=== PATIENT | male | born 1930 | race Caucasian/White ===

== ENCOUNTER 2016-11-05 11:32 | Inpatient (IN) | payer OTHER ==
[~2016-11-05] VITALS: Ht 180.3 cm; Wt 73.5 kg
--- NOTE | ~2016-11-05 | 2DMMODE ---
[facility] [place] [address] 2 D/M-MODE ECHOCARDIOGRAM Name: CAMILAYANNI Room #: 212-P [facility] IN .R.#: [id number] Admission: 11/05/16 Attend Phys: Amador Naranjo, Discharge: Date of : 30 Date of Service: 11/06/16 [facility] Report #: [id number] THIS REPORT FOR: //name// APPROVED REPORT Study performed: 11/06/2016 11:49:22 EXAM: Comprehensive 2D, Doppler, and color-flow Echocardiogram Patient Location: Bedside Room #: 212 Blood Pressure: 143/75 mmHg HR: 98 bpm Rhythm: Irregular Other Information Study Quality: Fair Technically limited study due to body habitus and limited mobility. Poor apical windows.. Indications Atrial Fibrillation Chest Pain Hx: Afib, HTN, Parkinson's 2D Dimensions LVEF(%): 75.06 (>50%) IVSd: 10.26 (7-11mm) LVOT Diam: 21.43 (18-24mm) LVDd: 45.47 mm PWd: 9.29 (7-11mm) Ascending Ao: 34.49 (22-36mm) LVDs: 25.57 (25-40mm) Aortic Root: 33.77 mm Nelson's LVEF: 75.06 % Volumes Left Atrial Volume (Systole) Single Plane 4CH: 20.65 mL Single Plane 2CH: 44.32 mL LA ESV Index: 19.00 mL/m2 Aortic Valve AoV Peak Carlito.: 2.31 m/s AO Peak Gr.: 21.26 mmHg LVOT Max P.29 mmHg AO Mean Gr.: 12.[address] [facility] [email or web address] [address] 2 D/M-MODE ECHOCARDIOGRAM Name: YANNI JENSEN Room #: 212-P [facility].#: [id number] Admission: 11/05/16 Attend Phys: Amador Naranjo, Discharge: Date of : 30 Date of Service: 11/06/16 1300 Report #: [id number] LVOT Max V: 1.25 m/s AO V2 VTI: 45.61 cm Mitral Valve E/A Ratio: 0.9 MV Decel. Time: 262.19 ms MV E Max Carlito.: 1.31 m/s MV A Carlito.: 1.38 m/s MV PHT: 76.04 ms Pulmonary Valve PV Peak Carlito.: 1.05 m/s PV Peak Gr.: 4.37 mmHg Tricuspid Valve TR Peak Carlito.: 2.87 m/s TR Peak Gr.: 32.92 mmHg Left Ventricle The left ventricle is normal size. There is normal LV segmental wall motion. There is normal left ventricular wall thickness. Left ventricular systolic function is normal. LVEF is 60-65%. Grade I - abnormal relaxation pattern. Right Ventricle Right ventricle is not well visualized. Atria The left atrium size is normal. Right atrium is not well visualized appears normal in size. Aortic Valve Aortic valve is moderately calcified. Mild aortic regurgitation. There is no aortic valvular stenosis. Difficult to obtain accurate velocity due to poor image quality. Mitral Valve Mitral valve leaflets are moderately thickened and calcified. Mild mitral regurgitation. Mild mitral stenosis. Tricuspid Valve Tricuspid valve is not well visualized. There is mild to moderate tricuspid regurgitation. There is at least mild pulmonary hypertension. Estimated PAP is 33mmHg plus the right atiral pressure. Pulmonic Valve [facility] [address] [place] [address] 2 D/M-MODE ECHOCARDIOGRAM Name: CAMILAYANNI Ashley Room #: 212-P [facility] IN .R.#: [id number] Admission: 11/05/16 Attend Phys: Amador Naranjo, Discharge: Date of : 30 Date of Service: 11/06/16 1300 Report #: [id number] The pulmonary valve is normal in structure. Trace pulmonic regurgitation. Great Vessels The aortic root is normal in size. The ascending aorta is normal in size. IVC is not well visualized. Pericardium There is no pericardial effusion. <Conclusion> Left ventricular systolic function is normal. LVEF 60-65%. There is normal LV segmental wall motion. Aortic valve is moderately calcified. Mild aortic regurgitation. No aortic valvular stenosis. Difficult to obtain accurate velocity due to poor image quality. Mitral valve leaflets are moderately thickened and calcified. Mild stenosis and insufficiency. Pulmonary artery pressure of 40mmHg. There is no pericardial effusion. <ELECTRONICALLY SIGNED> By: Sorin Vergara MD, FACC 11/06/16 1300 1300 1300 Sorin Vergara MD, FACC /INF
--- NOTE | ~2016-11-05 | HC ---
[facility] [place] [address] CONSULTATION Name: YANNI JENSEN Room #: 212-P [facility] IN M.R.#: [id number] Admission: 11/05/16 Attend Phys: Amador Naranjo DO Discharge: 11/06/16 Date of : 30 Report #: [id number] THIS REPORT FOR: //name// CC: Jackie Taylor HISTORY OF PRESENT ILLNESS: The patient is an 86-year-old male patient who has history of paroxysmal atrial fibrillation. I was asked to evaluate for some paroxysmal al fibrillation, RVR, but he has subsequently converted to sinus rhythm with the Cardizem drip and now at 5 mg an hour. He looks to have some mild dementia. He is not completely consistent answering the questions, but has underlying Parkinson and some questionable orthostatic hypotension, hypothyroidism. He denies any chest pain or shortness of breath, although the records states he was having some complaints. Troponin is negative. The EKG does not exhibiting current of injury. He has a history of this and appears that he was anticoagulated with Xarelto 20 mg, according to the cardiology note from from March of last year. He had been on carbidopa, levodopa, Celexa, Crestor, diltiazem 240, Nexium, finasteride, levothyroxine, rosuvastatin and Flomax, vitamin D, and Xarelto, although the current record as necessary support Xarelto I am not sure that he has been on this or not and he cannot accurately answer that. PAST MEDICAL HISTORY: Positive for Parkinson, paroxysmal atrial fibrillation, DJD, hypothyroidism, BPH, also some questionable history of orthostatic hypotension, reflux, diverticulitis, macular degeneration, left fracture leg, cataracts, and tonsillectomy. SOCIAL HISTORY: He lives at [facility] now in independent living. He was down for his meal he states. No current alcohol or tobacco. He said he had 30 children. I think that probably not true. LABORATORY DATA: Potassium 3.7, creatinine 0.8. Troponin is negative. H and H is 14 and 42, platelet 140. White cell count is 10.6, H and H is 14 and 42, platelets are 140. Chest x-ray, no acute abnormality. PHYSICAL EXAMINATION: GENERAL: He is intermittently and is awake, but not clearly the answers are consistently irregular here. VITAL SIGNS: Pulse 80s and regular, blood pressure 140/66. HEENT: Eyes, arcus senilis, no xanthelasmas. Pharynx is clear. NECK: Shows preserved upstrokes without JVD or bruits. LUNGS: Clear. CARDIOVASCULAR: Regular rate and rhythm, S1, S2. ABDOMEN: Soft. No HSM or abdominal bruit. EXTREMITIES: Reveal no edema. Distal pulses were intact. NEUROLOGIC: Nonfocal. SKIN: Warm and dry without xanthoma or ulcer. [address] [address] CONSULTATION Name: YANNI JENSEN Room #: 212-P [facility] IN M.R.#: [id number] Admission: 11/05/16 Attend Phys: Amador Naranjo DO Discharge: 11/06/16 Date of : 30 Report #: [id number] MUSCULOSKELETAL: No gross joint deformity, generalized arthritic changes. I did have some rigidity on exam, I did not ambulate him. There is no subtle intention tremors noted on the neurologic exam, but otherwise nonfocal. ASSESSMENT: 1. Atrial fibrillation, rapid ventricular response, paroxysmal, currently resolved. 2. History of Parkinson. 3. Mild confusion. 4. Degenerative joint disease. 5. Hypertension. 6. Benign prostatic hypertrophy. 7. History of orthostatic hypotension, not currently being treated. RECOMMENDATIONS AND PLAN: We will continue with low dose Cardizem drip tonight and then would agree with reinstituting his p.o. Cardizem, Lipitor. He is on the Xarelto 20 mg a day, carbidopa and levodopa, Protonix. We would repeat an echo Doppler in the a.m. and EKG, I believe we could discontinue serial troponins here. Thank you for allowing me to assist care of this patient. <ELECTRONICALLY SIGNED> By: Sandip Salinas MD, FACC 11/11/16 0921 2100 0633 Sandip Salinas MD, FACC /nt
--- NOTE | ~2016-11-05 | EKG ---
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1930 Requested By: Alyx Bee Order Number: [id number] MD: Sorin Vergara Measurements Intervals [place] Rate: 152 P: NV: QRS: 61 QRSD: 91 T: -6 QT: 317 QTc: 504 Interpretive Statements Atrial fibrillation with rapid V-rate Nonspecific ST segment abnormality Compared to ECG 03/26/2016 15:52:15 ventricular response has increased Electronically Signed On 11-06-2016 8:16:52 CDT by Sorin Vergara [email or web address] <ELECTRONICALLY SIGNED> By: Sorin Vergara MD, LOCATED [facility]IN [facility] 11/06/16 0816 1137 113 Sorin Vergara MD, [facility] /EPI
--- NOTE | ~2016-11-05 | EKG ---
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 : 1930 Requested By: Sandip Salinas Order Number: [id number] MD: Sorin Vergara Measurements Intervals [place] Rate: 85 P: 67 DE: 163 QRS: 33 QRSD: 96 T: 14 QT: 378 QTc: 450 Interpretive Statements Sinus rhythm Compared to ECG 03/26/2016 15:52:15 Sinus rhythm has replaced atrial flutter Electronically Signed On 11-06-2016 8:38:22 CDT by Sorin Vergara [email or web address] <ELECTRONICALLY SIGNED> By: Sorin Vergara MD, [facility] 11/06/16 0838 0656 Sorin Vergara MD, [facility] /EPI
[~2016-11-05 11:32] MED LIST: ADVIL200 M2 PO; AZITHROMYCIN 2250 MG PO; CARBIDOPA-LEVO1 EAC9 PO; CELEXA 10 MG TA10 M1 PO; COLACE100 MG PO; CRESTOR5 MG PO; DILTIAZEM 24HR240 M1 PO; FLOMAX PO; GLUCOSAMINE-CH1 EA32 PO; IBUPROFEN 200200 M1 PO; INDAPAMIDE2.5 MG PO; KLOR-CON 1010 MEQ PO; MIRALAX17 GM PO; MIRAPEX0.5 MG PO; NEXIUM40 MG PO; NORVASC 2.5 MG2.5 M1 PO; PEPCID COMPLET1 EACH PO; PROSCAR 5MG TABL5 MG PO; ROBAFEN AC SYR120 ML PO; SINEMET 25/1001 TAB PO; SINEMET CR 50/21 TAB PO; SYNTHROID 0.10.1 M1 PG; SYNTHROID112 MCG PO; TAMSULOSIN HCL0.4 M1 PO; TESSALON200 MG PO; VITAMIN B-12500 MCG PO; XARELTO20 MG PO
[2016-11-05 11:37] VITALS: BP 163/85
[2016-11-05 12:01] LABS: ABSOLUTE NEUTROPHILS 8.6 thou/uL (1.4-8.2); BASOPHILS 0.5 % (0.0-2.0); EOSINOPHILS 0.5 % (0.0-3.0); HEMATOCRIT 42.6 % (42.0-52.0); HEMOGLOBIN 14.4 gm/dL (14.0-18.0); LYMPHOCYTES 8.9 % (24.0-44.0); MCH 31.2 pg (26.0-34.0); MCHC 33.9 g/dL (28.0-37.0); MCV 91.9 fL (80.0-100.0); MONOCYTES 9.3 % (1.0-8.0); PLATELET COUNT 140 thou/uL (150-400); POLYS 80.8 % (36.0-66.0); RBC 4.63 mil/uL (4.50-6.00); WBC 10.6 thou/uL (4.0-11.0)
[2016-11-05 12:02] LABS: MANUAL DIFF NO
[2016-11-05 12:04] LABS: ANION GAP 9 mmol/L (7-16); BUN 15 mg/dL (7-18); CALCIUM 8.4 mg/dL (8.5-10.1); CHLORIDE 106 mmol/L (98-107); CO2 26 mmol/L (21-32); CREATININE 0.8 mg/dL (0.7-1.3); GLUCOSE 104 mg/dL (74-106); POTASSIUM 3.7 mmol/L (3.5-5.1); SODIUM 141 mmol/L (136-145)
[2016-11-05 12:11] LABS: ALBUMIN 3.9 g/dL (3.4-5.0); ALKALINE PHOSPHATASE 72 U/L (46-116); SGOT 18 U/L (15-37); SGPT 15 U/L (30-65); TOTAL BILIRUBIN 0.8 mg/dL (<0.1-1.0); TOTAL PROTEIN 7.1 g/dL (6.4-8.2); TROPONIN-I < 0.04 ng/mL (<0.04-0.07)
[2016-11-05 15:30] VITALS: BP 141/66
[2016-11-05 15:35] VITALS: BP 146/66
[2016-11-05 17:11] LABS: TSH 0.337 uIU/mL (0.358-3.740)
[2016-11-06 00:27] VITALS: BP 115/61
[2016-11-06 00:32] LABS: CHOLESTEROL 102 mg/dL (<200); HDL CHOLESTEROL 51 mg/dL (>40); LDL CHOLESTEROL 41 mg/dL (<100); TRIGLYCERIDE 53 mg/dL (<150); VLDL 11 mg/dL (<40)
[2016-11-06 00:40] LABS: SERUM ASSESSMENT Clear
[2016-11-06 04:20] VITALS: BP 129/72
[2016-11-06 07:35] VITALS: BP 143/75
[2016-11-06] MEDS ORDERED: CARDIZEM CD240 MG PO (10:45)
[2016-11-06 11:11] VITALS: BP 143/75
[2016-11-06 11:20] VITALS: BP 146/68
== END 2016-11-06 13:35 | disposition home or self-care (01) | DRG 308 ==
LOC: ER 11:32 → 2N 13:29 → EROBS 13:29 → 2N 15:26
PROVIDERS: Nurse Practitioner; Physician Assistant
DX: I48.0 Paroxysmal atrial fibrillation (principal); G93.40 Encephalopathy, unspecified; D68.69 Other thrombophilia; I10 Essential (primary) hypertension; G20 Parkinson's disease; E03.9 Hypothyroidism, unspecified; K21.9 Gastro-esophageal reflux disease without esophagitis; M19.90 Unspecified osteoarthritis, unspecified site; N40.0 Benign prostatic hyperplasia without lower urinary tract symptoms; H35.30 Unspecified macular degeneration; K59.00 Constipation, unspecified; D69.6 Thrombocytopenia, unspecified; R26.81 Unsteadiness on feet; E78.5 Hyperlipidemia, unspecified; W18.39XA Other fall on same level, initial encounter; Y93.89 Activity, other specified; Z87.81 Personal history of (healed) traumatic fracture; Z98.41 Cataract extraction status, right eye; Z82.49 Family history of ischemic heart disease and other diseases of the circulatory system; Z90.49 Acquired absence of other specified parts of digestive tract; Z87.891 Personal history of nicotine dependence; Z95.1 Presence of aortocoronary bypass graft; Y92.89 Other specified places as the place of occurrence of the external cause; Y99.8 Other external cause status
CPT/HCPCS: 10081

== ENCOUNTER 2016-11-13 06:22 | Inpatient (IN) | payer OTHER ==
[~2016-11-13] VITALS: Ht 180.3 cm; Wt 72.6 kg
[2016-11-13] VITALS (11 sets, daily range): BP systolic 85–126; BP diastolic 24–58
--- NOTE | ~2016-11-13 | EKG ---
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
--- NOTE | ~2016-11-13 | HC ---
[facility] [place] [address] CONSULTATION Name: YANNI JENSEN JR Room #: 310-P ADM IN M.R.#: [id number] Admission: 11/13/16 Attend Phys: Gabriela Balderas MD Discharge: Date of : 30 Report #: [id number] THIS REPORT FOR: //name// CC: Jackie Balderas DATE OF SERVICE: 11/13/2016 REFERRING PROVIDER: Gabriela Balderas MD. REASON FOR CONSULTATION: Left hip traumatic hematoma. HISTORY OF PRESENT ILLNESS: The patient is an 86-year-old male, who is a resident at [facility], and has a history of paroxysmal atrial fibrillation, Parkinson's disease, and recent history of sustaining falls. The patient got out of bed this morning and states that he was unable to stand and fell to the ground and has been brought to the emergency room for evaluation. The patient was recently hospitalized for the similar episode, where he was found to have atrial fibrillation with RVR, converted to normal sinus rhythm with Cardizem. The patient has since been admitted to the hospital floor for evaluation, and I have been asked to evaluate for his left hip hematoma, which has been there since the recent fall of several days ago. While in the emergency room today, he did undergo evaluation with laboratories and imaging, showing no evidence of a hip fracture, and his hemoglobin is 8.4 where most recently it was 14.4 on 11/05/2016. He has been on Xarelto. PAST MEDICAL HISTORY: Parkinson's disease, hypertension, hypothyroidism, atrial fibrillation, cataracts, macular degeneration, BPH, and intermittent hallucinations. MEDICATIONS: Carbidopa-levodopa, Crestor, Synthroid, Flomax, vitamin B12, MiraLax, Celexa, Proscar, Nexium, and was recently on Xarelto. ALLERGIES: No known drug allergies. SOCIAL HISTORY: The patient does not utilize tobacco, alcohol, or illicit drugs. FAMILY HISTORY: Reviewed and noncontributory. REVIEW OF SYSTEMS: GENERAL: The patient denies nocturnal fevers or chills. HEENT: No change in vision or change in hearing. NECK: No swelling or difficulty swallowing. HEART: No chest pain or palpitations. LUNGS: No cough or shortness of breath. [address] [address] CONSULTATION Name: YANNI JENSEN Room #: 310-P [facility] IN .R.#: [id number] Admission: 11/13/16 Attend Phys: Gabriela Balderas MD Discharge: Date of : 30 Report #: [id number] ABDOMEN: No nausea. No vomiting. GENITOURINARY: No dysuria or hematuria. ENDOCRINE: No polyuria or polydipsia. HEMATOLOGIC: No history of bleeding or easy bruising. EXTREMITIES: No history of weakness or limited range of motion. NEUROLOGIC: Significant history of syncope and traumatic falls. SKIN AND INTEGUMENT: No prior history of abnormal lesions or moles. PSYCHIATRIC: History of Parkinson's with hallucinations. PHYSICAL EXAMINATION: VITAL SIGNS: Temperature 98.1, pulse 98, respirations 18, blood pressure 81/41. GENERAL: He is alert, in no acute distress. HEENT: Normocephalic and atraumatic. Pupils are equal, round, and reactive to light. NECK: Supple, without lymphadenopathy. Trachea midline. CARDIOVASCULAR: Irregularly irregular and intermittently tachycardic. LUNGS: Clear to auscultation bilaterally. ABDOMEN: Soft, nontender, and nondistended. GENITOURINARY: Normal external male genitalia. EXTREMITIES: No clubbing, cyanosis, or edema. NEUROLOGICAL: Cranial nerves 2-12 are grossly intact. PSYCHIATRIC: Normal mood and affect. SKIN AND INTEGUMENT: No abnormal lesions or moles; however, he does have significant ecchymosis to his left hip. LABORATORY AND X-RAY DATA: CBC shows white blood cell count of 12,800, hemoglobin was 8.4, platelets 209,000. Creatinine 0.9. Lactic acid 1.0. CT scan of the head shows no acute intracranial process. Left hip and pelvis x-rays showed no acute osseous findings. Chest x-ray shows no acute cardiopulmonary process. ASSESSMENT AND PLAN: An 86-year-old male with a recent history of sustaining traumatic falls and a longstanding history of Parkinson's disease and paroxysmal atrial fibrillation. Currently, it appears he is back in atrial fibrillation, and I suspect his falls were secondary to his cardiopulmonary process; however, I cannot rule out any neurological contribution as well. The hospitalist service has consulted both Neurology and Cardiology, which I think as completely appropriate at this time. As there is no osseous abnormality, my recommendation for the left hip hematoma is expectant management with ice packs and elevation. The patient's Xarelto should remain on hold if possible, and we will perform serial CBCs to ensure his hemoglobin does not drop to an unsafe level. I will defer any transfusion to the primary care service or Cardiology. [facility] [address] [place] [address] CONSULTATION Name: YANNI JENSEN Room #: 310-P ADM IN M.R.#: [id number] Admission: 11/13/16 Attend Phys: Gabriela Balderas MD Discharge: Date of : 30 Report #: [id number] I sincerely appreciate this consult. I will follow along and leave any further recommendations in the patient's chart as appropriate. <ELECTRONICALLY SIGNED> By: Andrea José MD, IBIS 11/13/16 1617 1022 1535 Andrea José MD, FACS /nt
--- NOTE | ~2016-11-13 | HC ---
[facility] [place] [address] CONSULTATION Name: YANNI JENSEN JR Room #: 304-P [facility] IN M.R.#: [id number] Admission: 11/13/16 Attend Phys: Brody Smith MD Discharge: 11/17/16 Date of : 30 Report #: [id number] THIS REPORT FOR: //name// CC: Jackie Balderas DATE OF SERVICE: 11/14/2016 HISTORY OF PRESENT ILLNESS: The patient is an 86-year-old male with a history of Parkinson's disease who lives at [facility] in an independent living apartment. He has had problems with increasing falls almost daily. He had significant left hip pain. He was admitted for further evaluation. X-rays of the left hip were negative, but he has a very large hematoma. The patient had been on Xarelto for paroxysmal atrial fibrillation and that has been stopped. X-rays were negative. He was noted to have a significant anemia, hemoglobin down to 6.7, and he is currently being transfused. He had the atrial fibrillation with rapid ventricular rate and was placed on Cardizem IV. He is noted to have orthostasis. We are seeing him in rehabilitation medicine consultation. PAST MEDICAL HISTORY: Includes Parkinson's disease, hypertension, hypothyroidism, acid reflux, atrial fibrillation, BPH, constipation, macular degeneration and a history of diverticulitis. MEDICATIONS: Please see the full medication listing. HABITS: Tobacco use, nonsmoker, history of some ETOH usage, limited. FAMILY HISTORY: Mother had a myocardial infarction, at the age of 90. SOCIAL HISTORY: Lives in an independent living apartment with spouse at [facility]. He used a 4-wheeled walker to get around. There are no steps in. He went to a balance class. He was doing reasonably well up until most recently when he has had all the falls on basically a daily level. He has some neck weakness as well and tends to hold his head in a tilted position to the right. REVIEW OF SYSTEMS: Left lateral hip pain as expected. Did not offer any complaints of chest pain, shortness of breath or abdominal discomfort. No other focal extremity pain complaints currently. PHYSICAL EXAMINATION: GENERAL: An 86-year-old white male in no obvious distress. Some evidence of masked facies. VITAL SIGNS: Temperature is 98.5, pulse 96, respirations 18 and blood pressure 129/42. NEUROLOGIC: He is alert, will follow basic 1-step commands. Tends to defer [facility] [address] [place] [address] CONSULTATION Name: YANNI JENSEN Room #: 304-P [facility] IN [facility].#: [id number] Admission: 11/13/16 Attend Phys: Brody Smith MD Discharge: 11/17/16 Date of : 30 Report #: [id number] some of the answers to his . He has decreased insight. Nursing has noted some confusion and agitation. He does appear to be forgetful as far as decreased short-term memory. He does follow basic 1-step commands however. EXTREMITIES: Upper extremities reveal some cogwheeling elbows and wrists. Strength is a grade 3+. Left lateral hip reveals a very large hematoma from the pelvic area laterally all the way down to the lateral mid thigh. He does have evidence of some rigidity of both those lower extremities, and it made it rather difficult as far as trying to test manual muscle testing. I did not assess sensation. There is no focal calf swelling. He is mod assist with sit to stand. ASSESSMENT: An 86-year-old white male with the following problem list: 1. Recurrent falls. 2. Parkinson's disease. 3. Orthostatic hypotension. 4. Left hip hematoma post fall with significant anemia. Currently undergoing transfusion. 5. History of atrial fibrillation with rapid ventricular rate on Cardizem IV. 6. Orthostatic hypotension. 7. Paroxysmal atrial fibrillation with Xarelto being stopped. He is on aspirin. PLAN: Therapies are continuing to work with him to try to improve his overall function. He is moving slowly, has discomfort, especially with that left hip, and orthostasis that is being monitored. Note that [facility] is being considered as he further medically stabilizes. This would appear to be a reasonable plan as he is at a rather low functional level and therapy tolerance has been an issue at this time. Thank you for asking us to assist in this patient's care. Sincerely, <ELECTRONICALLY SIGNED> By: Hank Faust MD 11/19/16 1528 1157 1849 Hank Faust MD /nt
[~2016-11-13 06:22] MED LIST changes: +CARDIZEM CD240 MG PO
[2016-11-13] MEDS ORDERED: NEXIUM40 MG PO (06:36)
[2016-11-13] MEDS ORDERED: AREDS 2 (06:38)
[2016-11-13 07:34] LABS: BASOPHILS 0.6 % (0.0-2.0); EOSINOPHILS 0.4 % (0.0-3.0); HEMOGLOBIN 8.4 gm/dL (14.0-18.0); LYMPHOCYTES 10.9 % (24.0-44.0); MCH 31.7 pg (26.0-34.0); MCHC 34.9 g/dL (28.0-37.0); MCV 90.7 fL (80.0-100.0); MONOCYTES 10.1 % (1.0-8.0); PLATELET COUNT 209 thou/uL (150-400); RBC 2.65 mil/uL (4.50-6.00); RDW 13.5 % (10.5-14.5); WBC 12.8 thou/uL (4.0-11.0)
[2016-11-13 07:37] LABS: MANUAL DIFF NO
[2016-11-13 07:45] LABS: CALCIUM 7.5 mg/dL (8.5-10.1); CREATININE 0.9 mg/dL (0.7-1.3); MAGNESIUM 1.8 mg/dL (1.8-2.4); POTASSIUM 3.2 mmol/L (3.5-5.1)
[2016-11-13 08:23] LABS: URINE BLOOD NEGATIVE (Negative); URINE COLOR YELLOW; URINE GLUCOSE-RANDOM* NEGATIVE (Negative); URINE KETONES TRACE (Negative); URINE LEUKOCYTES-REFLEX NEGATIVE (Negative); URINE PROTEIN (DIPSTICK) 1+ (Negative); URINE SPECIFIC GRAVITY 1.025 (1.003-1.035)
[2016-11-13 08:26] LABS: ICTOTEST (BILI CONFIRMATORY) Negative (Negative); URINE BILIRUBIN NEGATIVE (Negative)
[2016-11-13 08:34] LABS: CASTS None Seen /LPF (None Seen); SQUAMOUS None Seen /LPF (0-3)
[2016-11-13 08:35] LABS: CRYSTALS None Seen /LPF (None Seen); URINE RBC None Seen /HPF (0-2); URINE WBC-REFLEX 0-5 Rare /HPF (0-5)
[2016-11-14] VITALS (8 sets, daily range): BP systolic 116–138; BP diastolic 41–116
[2016-11-14 05:21] LABS: BASOPHILS 0.4 % (0.0-2.0); RBC 2.09 mil/uL (4.50-6.00)
[2016-11-14 05:23] LABS: ABSOLUTE NEUTROPHILS 8.2 thou/uL (1.4-8.2); EOSINOPHILS 0.3 % (0.0-3.0); LYMPHOCYTES 12.9 % (24.0-44.0); MCH 31.9 pg (26.0-34.0); MCHC 35.2 g/dL (28.0-37.0); MCV 90.8 fL (80.0-100.0); MONOCYTES 10.2 % (1.0-8.0); PLATELET COUNT 181 thou/uL (150-400); POLYS 76.2 % (36.0-66.0); RDW 13.2 % (10.5-14.5); WBC 10.8 thou/uL (4.0-11.0)
[2016-11-14 05:26] LABS: MANUAL DIFF NO
[2016-11-14 05:27] LABS: HEMOGLOBIN 6.7 gm/dL (14.0-18.0)
[2016-11-14 05:32] LABS: ALBUMIN 2.4 g/dL (3.4-5.0); CALCIUM 7.3 mg/dL (8.5-10.1); CREATININE 0.8 mg/dL (0.7-1.3); MAGNESIUM 2.2 mg/dL (1.8-2.4); POTASSIUM 3.5 mmol/L (3.5-5.1); TOTAL BILIRUBIN 1.3 mg/dL (<0.1-1.0); TOTAL PROTEIN 5.1 g/dL (6.4-8.2)
[2016-11-14 09:20] LABS: TSH 1.112 uIU/mL (0.358-3.740)
[2016-11-15] VITALS (8 sets, daily range): BP systolic 13–138; BP diastolic 40–69
[2016-11-15 04:25] LABS: HEMOGLOBIN 8.5 gm/dL (14.0-18.0); MCH 30.8 pg (26.0-34.0); MCHC 34.1 g/dL (28.0-37.0); MCV 90.4 fL (80.0-100.0); PLATELET COUNT 201 thou/uL (150-400); RBC 2.76 mil/uL (4.50-6.00); RDW 14.2 % (10.5-14.5); WBC 14.5 thou/uL (4.0-11.0)
[2016-11-15 04:32] LABS: MANUAL DIFF YES
[2016-11-15 04:37] LABS: CALCIUM 7.5 mg/dL (8.5-10.1); CREATININE 0.9 mg/dL (0.7-1.3); POTASSIUM 3.4 mmol/L (3.5-5.1)
[2016-11-15 04:58] LABS: ABSOLUTE NEUTROPHILS 11.9 thou/uL (1.4-8.2); TOTAL CELL COUNT 100
[2016-11-16 04:04] VITALS: BP 142/65
[2016-11-16 07:15] VITALS: BP 152/70
[2016-11-16 14:58] VITALS: BP 110/50
[2016-11-16 19:35] VITALS: BP 140/66
[2016-11-17 04:05] VITALS: BP 166/83
[2016-11-17 04:52] LABS: HEMATOCRIT 26.7 % (42.0-52.0); HEMOGLOBIN 9.2 gm/dL (14.0-18.0); MCHC 34.5 g/dL (28.0-37.0); MCV 89.7 fL (80.0-100.0); RBC 2.98 mil/uL (4.50-6.00); RDW 13.8 % (10.5-14.5); WBC 11.5 thou/uL (4.0-11.0)
[2016-11-17 04:59] LABS: CALCIUM 7.2 mg/dL (8.5-10.1); CREATININE 0.8 mg/dL (0.7-1.3); POTASSIUM 3.2 mmol/L (3.5-5.1)
[2016-11-17 05:25] LABS: PLATELET COUNT 282 thou/uL (150-400)
[2016-11-17 05:26] LABS: MANUAL DIFF YES
[2016-11-17 08:33] LABS: ABSOLUTE NEUTROPHILS 9.3 thou/uL (1.4-8.2); ANISOCYTOSIS 1+; METAMYELOCYTES 1 %; NUCLEATED RBCS 1 /100WBC; POLYCHROMASIA OCCASIONAL; TOTAL CELL COUNT 100
[2016-11-17] MEDS ORDERED: TAMBOCOR 100 M100 M1 PO (12:09)
== END 2016-11-17 15:29 | DRG 604 ==
LOC: ER 06:22 → EROBS 08:37 → 3N 08:37
PROVIDERS: Emergency Medicine; Internal Medicine Endocrinology, Diabetes & Metabolism; Nurse Practitioner
PROC: 30233N1 Transfusion of Nonautologous Red Blood Cells into Peripheral Vein, Percutaneous Approach (ICD-10-PCS; principal; 2016-11-14)
DX: S70.02XA Contusion of left hip, initial encounter (principal); G93.40 Encephalopathy, unspecified; E43 Unspecified severe protein-calorie malnutrition; D62 Acute posthemorrhagic anemia; D68.9 Coagulation defect, unspecified; G20 Parkinson's disease; I48.0 Paroxysmal atrial fibrillation; I10 Essential (primary) hypertension; R29.6 Repeated falls; E03.9 Hypothyroidism, unspecified; K21.9 Gastro-esophageal reflux disease without esophagitis; F02.80 Dementia in other diseases classified elsewhere, unspecified severity, without behavioral disturbance, psychotic disturbance, mood disturbance, and anxiety; N40.0 Benign prostatic hyperplasia without lower urinary tract symptoms; K59.00 Constipation, unspecified; E86.0 Dehydration; D72.829 Elevated white blood cell count, unspecified; I95.1 Orthostatic hypotension; E83.42 Hypomagnesemia; R26.89 Other abnormalities of gait and mobility; E87.6 Hypokalemia; E78.5 Hyperlipidemia, unspecified; R41.0 Disorientation, unspecified; Z98.41 Cataract extraction status, right eye; Z82.49 Family history of ischemic heart disease and other diseases of the circulatory system; Z79.899 Other long term (current) drug therapy; Z87.81 Personal history of (healed) traumatic fracture; W18.39XA Other fall on same level, initial encounter; Y93.89 Activity, other specified; Y92.89 Other specified places as the place of occurrence of the external cause; Y99.8 Other external cause status
CPT/HCPCS: 10096; 23012